=== PATIENT | male | born 2000 | race Caucasian/White ===

== ENCOUNTER 2021-04-25 00:48 | Emergency (ER) | payer SELFPAY ==
[~2021-04-25] VITALS: Ht 170.2 cm; Wt 76.7 kg
[2021-04-25 02:18] VITALS: BP 113/64
[2021-04-25] MEDS ORDERED: ACETAMINOPHEN 325 MG TABLET PO ONE (03:00)
[2021-04-25] MEDS ORDERED: SULFAMETH/TRIMETH 800/160 MG 1 UDTAB TABLET PO ONE (03:00)
[2021-04-25] MEDS ORDERED: CEPHALEXIN MONOHYDRATE 500 MG CAPSULE PO ONE ×2 (03:00→03:01)
[2021-04-25] MEDS ORDERED: ACETAMINOPHEN 325 MG TABLET ONE (03:01)
[2021-04-25] MEDS ORDERED: SULFAMETH/TRIMETH 800/160 MG 1 UDTAB TABLET ONE (03:01)
[2021-04-25] MEDS ORDERED: CEPH500C2 PO (03:24)
[2021-04-25] MEDS ORDERED: SULF1TAB48 PO (03:24)
== END 2021-04-25 03:45 | disposition home or self-care (01) ==
LOC: ER 00:55
DX: L03.011 Cellulitis of right finger (principal); Z79.899 Other long term (current) drug therapy